=== PATIENT | female | born 1945 | race Caucasian/White ===

== ENCOUNTER 2020-06-19 04:40 | Inpatient (IN) | payer MEDICARE ==
[2020-06-19 05:13] LABS: Analyzer IN Cardio ER; Base Excess (BEa) -0.9 mEq/L (-2.0 to +3.0); CO2 Tension 40.3 mmHg (35.0-45.0); Calcium, Ionized (arterial) 1.21 mmol/L (1.12-1.30); Carboxyhemoglobin (COHb) 0.4 gm% (0.0-3.0); O2 Tension (PaO2), arterial 63.1 mmHg (> 70.0); pH, Arterial 7.39 (7.35-7.45)
[2020-06-19 05:15] LABS: Puncture Site LRA
[2020-06-19 05:17] LABS: ALV-art Gradient 456.925 mmHg (0-20)
[2020-06-19] MEDS ORDERED: Bisacodyl 10 MG SUPP PR PRN (05:29)
[2020-06-19] MEDS ORDERED: Nitroglycerin 0.4 MG TAB (25 Tab Bottle) SL PRN (05:29)
[2020-06-19] MEDS ORDERED: hydrALAZINE 20 MG/ML VIAL SLOW IVP PRN (05:36)
[2020-06-19 05:37] LABS: ALT (SGPT) 20 U/L (8-55); AST (SGOT) 24 U/L (5-34); Albumin 2.7 g/dL (3.4-4.8); Alkaline Phosphatase 128 U/L (40-110); Anion Gap 14 mmol/L (10-20); BUN (Urea Nitrogen) 15 mg/dL (9.8-20.1); Calc. Creatinine Clearance 0 mL/min (70-130); Calcium 9.3 mg/dL (7.8-10.44); Carbon Dioxide 27 mmol/L (23-31); Chloride 99 mmol/L (98-107); Glucose 117 mg/dL (83-110); Potassium 4.2 mmol/L (3.5-5.1); Protein, Total 6.7 g/dL (5.8-8.1); Sodium 136 mmol/L (136-145)
[2020-06-19] MEDS ORDERED: Piperacillin/Tazobactam 3.375 GM VIAL ONE (05:46)
[2020-06-19 06:00] LABS: Anisocytosis SLIGHT = 6-15 cells (100X) (0-5/hpf); Band 5 % (5-11); Hemoglobin 10.3 g/dL (12.0-16.0); Lymphocytes 10 % (21-51); MDiff Complete? YES; Mean Corpuscular HGB CONC 29.5 g/dL (32.0-36.0); Mean Corpuscular Hemoglobin 24.4 pg (27.0-31.0); Mean Corpuscular Volume 82.9 fL (78.0-98.0); Mean Platelet Volume 7.8 fL (7.4-10.4); Monocytes 6 % (0-10); Neutrophil 79 % (42-75); Platelet Count 311 thou/uL (130-400); RBC Distribution Width 17.5 % (11.5-14.5); Red Blood Cell (RBC) Count 4.22 mill/uL (4.20-5.40); White Blood Cell (WBC) Count 21.5 thou/uL (4.8-10.8)
[2020-06-19] MEDS ORDERED: Ivermectin 3 MG TAB PO SCH (06:00)
[2020-06-19 06:28] LABS: Lactic Acid 1.4 mmol/L (0.5-2.2)
[2020-06-19] MEDS ORDERED: Potassium Phosphate 30 MMOL in Sodium Chloride 0.9% 500 ML IVPB SCH (06:30)
[2020-06-19] MEDS ORDERED: VANCOMYCIN 2 GRAM/400 ML BAG 2 GM in Premix Bag 1 BAG IVPB SCH (06:45)
[2020-06-19] MEDS ORDERED: Enoxaparin Sodium 80 MG/0.8 ML SYRINGE SC SCH (09:00)
[2020-06-19] MEDS: Enoxaparin Sodium 120 MG/0.8 ML SYRINGE SC SCH ×2 (09:10→21:52)
[2020-06-19] MEDS: Famotidine/PF 20 mg/2ml Vial SLOW IVP SCH ×2 (09:10→21:52)
[2020-06-19] MEDS: Furosemide 40 MG/4 ML VIAL SLOW IVP SCH ×2 (09:10→13:52)
[2020-06-19 09:21] LABS: Troponin I Less than 0.010 ng/mL (< 0.028)
[2020-06-19 10:56] VITALS: BMI 47.7
[2020-06-19] MEDS: Albuterol 200 PUFF (6.7GM INHALER) INH SCH ×5 (11:03→21:38)
[2020-06-19] MEDS: Dexamethasone Sod Phosphate 6 MG in Sodium Chloride 0.9% 50 ML IVPB SCH ×2 (11:06→21:52)
[2020-06-19] MEDS: Zinc Sulfate 220 MG CAP PO SCH (11:27)
[2020-06-19] MEDS: guaiFENesin ER 600 MG TAB PO SCH ×2 (11:27→21:52)
[2020-06-19] MEDS: Ondansetron PF 4 MG/2 ML Vial IVP PRN (11:31)
[2020-06-19] MEDS: Morphine 4 MG/ML VIAL SLOW IVP PRN (13:52)
[2020-06-19] MEDS: Sotalol HCl 80 MG TAB PO SCH (21:51)
[2020-06-19] MEDS: Atorvastatin Calcium 40 MG TAB PO SCH (21:51)
[2020-06-19] MEDS: tiZANidine HCl 4 MG TAB PO PRN (21:52)
[2020-06-20] MEDS: Ondansetron PF 4 MG/2 ML Vial IVP PRN ×3 (02:35→17:25)
[2020-06-20] MEDS: Morphine 4 MG/ML VIAL SLOW IVP PRN (02:40)
[2020-06-20] MEDS: Albuterol 200 PUFF (6.7GM INHALER) INH SCH ×6 (03:09→22:59)
[2020-06-20 04:00] LABS: Hemoglobin 9.2 g/dL (12.0-16.0); MDiff Complete? YES; Mean Corpuscular Hemoglobin 24.2 pg (27.0-31.0); Mean Corpuscular Volume 80.7 fL (78.0-98.0); Mean Platelet Volume 8.3 fL (7.4-10.4); Platelet Count 272 thou/uL (130-400); RBC Distribution Width 17.1 % (11.5-14.5); White Blood Cell (WBC) Count 16.8 thou/uL (4.8-10.8)
[2020-06-20 04:01] LABS: Hypochromia SLIGHT = 6-15 cells (100X) (0-5/hpf); Lymphocytes 2 % (21-51); Monocytes 4 % (0-10); Neutrophil 94 % (42-75); Platelet Morphology Comment Appears Adequate
[2020-06-20 04:10] LABS: ALT (SGPT) 20 U/L (8-55); AST (SGOT) 22 U/L (5-34); Albumin 2.4 g/dL (3.4-4.8); Alkaline Phosphatase 123 U/L (40-110); Anion Gap 12 mmol/L (10-20); BUN (Urea Nitrogen) 18 mg/dL (9.8-20.1); Bilirubin, Total 0.8 mg/dL (0.2-1.2); Calc. Creatinine Clearance 121 mL/min (70-130); Calcium 9.2 mg/dL (7.8-10.44); Carbon Dioxide 30 mmol/L (23-31); Chloride 94 mmol/L (98-107); Globulin 3.6 g/dL (2.4-3.5); Glucose 158 mg/dL (83-110); Potassium 4.1 mmol/L (3.5-5.1); Sodium 132 mmol/L (136-145)
[2020-06-20] MEDS: Zinc Sulfate 220 MG CAP PO SCH (08:52)
[2020-06-20] MEDS: Famotidine/PF 20 mg/2ml Vial SLOW IVP SCH ×2 (08:52→21:35)
[2020-06-20] MEDS: Potassium Chloride 20 MEQ TAB PO SCH (08:52)
[2020-06-20] MEDS: Sotalol HCl 80 MG TAB PO SCH ×2 (08:52→21:35)
[2020-06-20] MEDS: Aspirin 81 mg Enteric Coated Tablet PO SCH (08:52)
[2020-06-20] MEDS: Furosemide 40 MG TAB PO SCH (08:52)
[2020-06-20] MEDS: guaiFENesin ER 600 MG TAB PO SCH ×2 (08:52→21:35)
[2020-06-20] MEDS: Enoxaparin Sodium 120 MG/0.8 ML SYRINGE SC SCH ×2 (08:54→21:34)
[2020-06-20] MEDS: Dexamethasone Sod Phosphate 6 MG in Sodium Chloride 0.9% 50 ML IVPB SCH ×2 (09:36→21:35)
[2020-06-20] MEDS: Colchicine 0.6 MG TAB PO SCH (21:35)
[2020-06-20] MEDS: tiZANidine HCl 4 MG TAB PO PRN (21:35)
[2020-06-20] MEDS: Melatonin 3 MG TAB PO SCH (21:35)
[2020-06-20] MEDS: Atorvastatin Calcium 40 MG TAB PO SCH (21:35)
[2020-06-21] MEDS: Morphine 4 MG/ML VIAL SLOW IVP PRN (00:47)
[2020-06-21] MEDS ORDERED: Mag-Al 1200 mg/1200 mg/30 ML UDCUP PO SCH (03:30)
[2020-06-21] MEDS: Albuterol 200 PUFF (6.7GM INHALER) INH SCH ×6 (04:00→23:45)
[2020-06-21] MEDS: Enoxaparin Sodium 120 MG/0.8 ML SYRINGE SC SCH ×2 (08:14→22:27)
[2020-06-21] MEDS: Potassium Chloride 20 MEQ TAB PO SCH (08:14)
[2020-06-21] MEDS: guaiFENesin ER 600 MG TAB PO SCH ×2 (08:14→22:27)
[2020-06-21] MEDS: Colchicine 0.6 MG TAB PO SCH ×2 (08:14→22:28)
[2020-06-21] MEDS: Furosemide 40 MG TAB PO SCH (08:14)
[2020-06-21] MEDS: Sotalol HCl 80 MG TAB PO SCH ×2 (08:15→22:27)
[2020-06-21] MEDS: Aspirin 81 mg Enteric Coated Tablet PO SCH (08:15)
[2020-06-21] MEDS: Zinc Sulfate 220 MG CAP PO SCH (08:15)
[2020-06-21] MEDS ORDERED: Pantoprazole 40 MG GRANULES PACKET PO SCH (09:00)
[2020-06-21] MEDS: Dexamethasone Sod Phosphate 6 MG in Sodium Chloride 0.9% 50 ML IVPB SCH ×2 (09:21→22:27)
[2020-06-21] MEDS: Mag-Al 1200 mg/1200 mg/30 ML UDCUP PO PRN (16:12)
[2020-06-21] MEDS: Ondansetron PF 4 MG/2 ML Vial IVP PRN (21:05)
[2020-06-21] MEDS: Atorvastatin Calcium 40 MG TAB PO SCH (22:28)
[2020-06-21] MEDS: Melatonin 3 MG TAB PO SCH (22:28)
[2020-06-22] MEDS: Albuterol 200 PUFF (6.7GM INHALER) INH SCH ×6 (03:32→22:45)
[2020-06-22] MEDS: Morphine 4 MG/ML VIAL SLOW IVP PRN ×2 (03:58→11:34)
[2020-06-22] MEDS: guaiFENesin ER 600 MG TAB PO SCH ×2 (08:16→21:50)
[2020-06-22] MEDS: Aspirin 81 mg Enteric Coated Tablet PO SCH (08:16)
[2020-06-22] MEDS: Colchicine 0.6 MG TAB PO SCH ×2 (08:16→21:50)
[2020-06-22] MEDS: Potassium Chloride 20 MEQ TAB PO SCH (08:16)
[2020-06-22] MEDS: Furosemide 40 MG TAB PO SCH (08:16)
[2020-06-22] MEDS: Enoxaparin Sodium 120 MG/0.8 ML SYRINGE SC SCH ×2 (08:16→21:50)
[2020-06-22] MEDS: Zinc Sulfate 220 MG CAP PO SCH (08:16)
[2020-06-22] MEDS: Sotalol HCl 80 MG TAB PO SCH ×2 (08:16→21:51)
[2020-06-22] MEDS: Dexamethasone Sod Phosphate 6 MG in Sodium Chloride 0.9% 50 ML IVPB SCH ×2 (10:25→21:51)
[2020-06-22] MEDS: Melatonin 3 MG TAB PO SCH (21:49)
[2020-06-22] MEDS: Cholecalciferol 1,000 UNITS (25 MCG) TAB PO SCH (21:50)
[2020-06-22] MEDS: Atorvastatin Calcium 40 MG TAB PO SCH (21:50)
[2020-06-23] MEDS: Morphine 4 MG/ML VIAL SLOW IVP PRN ×4 (00:10→22:05)
[2020-06-23] MEDS: Albuterol 200 PUFF (6.7GM INHALER) INH SCH ×6 (04:00→22:31)
[2020-06-23 04:14] LABS: #Lymphocytes 0.8 thou/uL (1.20-3.40); #Monocytes 0.6 thou/uL (0.11-0.59); #Neutrophils 10.8 thou/uL (1.40-6.50); %Basophils 0.1 % (0.0-1.0); %Eosinophils 0.1 % (0.0-10.0); %Lymphocytes 6.5 % (21.0-51.0); %Neutrophils 88.3 % (42.0-75.0); Hemoglobin 9.7 g/dL (12.0-16.0); Mean Corpuscular HGB CONC 30.5 g/dL (32.0-36.0); Mean Corpuscular Hemoglobin 24.7 pg (27.0-31.0); Mean Corpuscular Volume 80.8 fL (78.0-98.0); Mean Platelet Volume 8.5 fL (7.4-10.4); Platelet Count 250 thou/uL (130-400); RBC Distribution Width 16.9 % (11.5-14.5); Red Blood Cell (RBC) Count 3.94 mill/uL (4.20-5.40); White Blood Cell (WBC) Count 12.3 thou/uL (4.8-10.8)
[2020-06-23 04:39] LABS: Anion Gap 11 mmol/L (10-20); BUN (Urea Nitrogen) 21 mg/dL (9.8-20.1); CRP (Inflammatory) 3.44 mg/dL (= or < 0.5); Calc. Creatinine Clearance 131 mL/min (70-130); Carbon Dioxide 32 mmol/L (23-31); Chloride 96 mmol/L (98-107); Glucose 166 mg/dL (83-110); Potassium 4.4 mmol/L (3.5-5.1); Sodium 135 mmol/L (136-145)
[2020-06-23] MEDS: Furosemide 40 MG TAB PO SCH (06:39)
[2020-06-23] MEDS: Enoxaparin Sodium 120 MG/0.8 ML SYRINGE SC SCH ×2 (08:39→22:02)
[2020-06-23] MEDS: Cholecalciferol 1,000 UNITS (25 MCG) TAB PO SCH ×2 (08:40→22:04)
[2020-06-23] MEDS: Zinc Sulfate 220 MG CAP PO SCH (08:40)
[2020-06-23] MEDS: Sotalol HCl 80 MG TAB PO SCH ×2 (08:40→22:05)
[2020-06-23] MEDS: Potassium Chloride 20 MEQ TAB PO SCH (08:40)
[2020-06-23] MEDS: Aspirin 81 mg Enteric Coated Tablet PO SCH (08:40)
[2020-06-23] MEDS: guaiFENesin ER 600 MG TAB PO SCH ×2 (08:40→22:02)
[2020-06-23] MEDS: Colchicine 0.6 MG TAB PO SCH ×2 (08:40→22:04)
[2020-06-23] MEDS: Dexamethasone Sod Phosphate 6 MG in Sodium Chloride 0.9% 50 ML IVPB SCH ×2 (09:59→22:03)
[2020-06-23] MEDS: Mag-Al 1200 mg/1200 mg/30 ML UDCUP PO PRN (10:15)
[2020-06-23] MEDS: Atorvastatin Calcium 40 MG TAB PO SCH (22:04)
[2020-06-23] MEDS: Melatonin 3 MG TAB PO SCH (22:04)
[2020-06-24] MEDS: Albuterol 200 PUFF (6.7GM INHALER) INH SCH ×6 (02:12→22:15)
[2020-06-24] MEDS: Morphine 4 MG/ML VIAL SLOW IVP PRN ×4 (03:00→21:36)
[2020-06-24] MEDS: Sotalol HCl 80 MG TAB PO SCH ×2 (08:39→21:30)
[2020-06-24] MEDS: Cholecalciferol 1,000 UNITS (25 MCG) TAB PO SCH ×2 (08:39→21:30)
[2020-06-24] MEDS: Colchicine 0.6 MG TAB PO SCH ×2 (08:39→21:30)
[2020-06-24] MEDS: Aspirin 81 mg Enteric Coated Tablet PO SCH (08:39)
[2020-06-24] MEDS: Zinc Sulfate 220 MG CAP PO SCH (08:40)
[2020-06-24] MEDS: guaiFENesin ER 600 MG TAB PO SCH ×2 (08:40→21:30)
[2020-06-24] MEDS: Potassium Chloride 20 MEQ TAB PO SCH (08:40)
[2020-06-24] MEDS: Enoxaparin Sodium 120 MG/0.8 ML SYRINGE SC SCH (08:40)
[2020-06-24] MEDS: Furosemide 40 MG TAB PO SCH (08:40)
[2020-06-24] MEDS: Dexamethasone Sod Phosphate 6 MG in Sodium Chloride 0.9% 50 ML IVPB SCH ×2 (09:50→21:31)
[2020-06-24] MEDS: Ondansetron PF 4 MG/2 ML Vial IVP PRN (10:34)
[2020-06-24] MEDS: Rivaroxaban 15 MG TAB PO SCH (17:38)
[2020-06-24] MEDS: Melatonin 3 MG TAB PO SCH (21:30)
[2020-06-24] MEDS: Atorvastatin Calcium 40 MG TAB PO SCH (21:30)
[2020-06-25] MEDS: Albuterol 200 PUFF (6.7GM INHALER) INH SCH ×6 (02:44→21:47)
[2020-06-25] MEDS: Morphine 4 MG/ML VIAL SLOW IVP PRN ×4 (03:21→21:20)
[2020-06-25] MEDS: Potassium Chloride 20 MEQ TAB PO SCH (09:05)
[2020-06-25] MEDS: Furosemide 40 MG TAB PO SCH (09:05)
[2020-06-25] MEDS: guaiFENesin ER 600 MG TAB PO SCH ×2 (09:05→21:18)
[2020-06-25] MEDS: Cholecalciferol 1,000 UNITS (25 MCG) TAB PO SCH ×2 (09:06→21:19)
[2020-06-25] MEDS: Aspirin 81 mg Enteric Coated Tablet PO SCH (09:06)
[2020-06-25] MEDS: Sotalol HCl 80 MG TAB PO SCH ×2 (09:06→21:19)
[2020-06-25] MEDS: Zinc Sulfate 220 MG CAP PO SCH (09:06)
[2020-06-25] MEDS: Colchicine 0.6 MG TAB PO SCH ×2 (09:09→21:18)
[2020-06-25] MEDS: Rivaroxaban 15 MG TAB PO SCH ×2 (09:09→18:27)
[2020-06-25] MEDS: Dexamethasone Sod Phosphate 6 MG in Sodium Chloride 0.9% 50 ML IVPB SCH ×2 (10:04→21:19)
[2020-06-25] MEDS: Ondansetron PF 4 MG/2 ML Vial IVP PRN (10:08)
[2020-06-25] MEDS: tiZANidine HCl 4 MG TAB PO PRN (21:19)
[2020-06-25] MEDS: Atorvastatin Calcium 40 MG TAB PO SCH (21:19)
[2020-06-25] MEDS: Melatonin 3 MG TAB PO SCH (21:19)
[2020-06-26] MEDS: Morphine 4 MG/ML VIAL SLOW IVP PRN ×5 (02:09→23:19)
[2020-06-26] MEDS: Albuterol 200 PUFF (6.7GM INHALER) INH SCH ×6 (02:28→22:15)
[2020-06-26] MEDS: Furosemide 40 MG TAB PO SCH (09:19)
[2020-06-26] MEDS: Cholecalciferol 1,000 UNITS (25 MCG) TAB PO SCH ×2 (09:19→21:12)
[2020-06-26] MEDS: Sotalol HCl 80 MG TAB PO SCH ×2 (09:19→21:11)
[2020-06-26] MEDS: Aspirin 81 mg Enteric Coated Tablet PO SCH (09:19)
[2020-06-26] MEDS: Colchicine 0.6 MG TAB PO SCH ×2 (09:20→21:12)
[2020-06-26] MEDS: Zinc Sulfate 220 MG CAP PO SCH (09:20)
[2020-06-26] MEDS: Potassium Chloride 20 MEQ TAB PO SCH (09:20)
[2020-06-26] MEDS: guaiFENesin ER 600 MG TAB PO SCH ×2 (09:20→21:12)
[2020-06-26] MEDS: Dexamethasone Sod Phosphate 6 MG in Sodium Chloride 0.9% 50 ML IVPB SCH ×2 (09:21→21:11)
[2020-06-26] MEDS: Ondansetron PF 4 MG/2 ML Vial IVP PRN ×2 (09:24→21:11)
[2020-06-26] MEDS ORDERED: tiZANidine HCl 4 MG TAB PO PRN (09:45)
[2020-06-26] MEDS: Rivaroxaban 15 MG TAB PO SCH ×2 (09:46→16:44)
[2020-06-26] MEDS: Senokot 8.6 MG TAB PO PRN ×2 (09:53→21:12)
[2020-06-26] MEDS: Mag-Al 1200 mg/1200 mg/30 ML UDCUP PO PRN (12:31)
[2020-06-26] MEDS: Melatonin 3 MG TAB PO SCH (21:12)
[2020-06-26] MEDS: Atorvastatin Calcium 40 MG TAB PO SCH (21:12)
[2020-06-27] MEDS: Albuterol 200 PUFF (6.7GM INHALER) INH SCH ×6 (03:29→23:51)
[2020-06-27] MEDS: Morphine 4 MG/ML VIAL SLOW IVP PRN ×2 (05:10→10:32)
[2020-06-27] MEDS: Ondansetron PF 4 MG/2 ML Vial IVP PRN ×2 (05:17→22:43)
[2020-06-27] MEDS ORDERED: Fleet Enema 133 ML BOT PR SCH (09:45)
[2020-06-27] MEDS: Dexamethasone Sod Phosphate 6 MG in Sodium Chloride 0.9% 50 ML IVPB SCH ×2 (09:58→23:35)
[2020-06-27] MEDS: Furosemide 40 MG TAB PO SCH (09:59)
[2020-06-27] MEDS: Aspirin 81 mg Enteric Coated Tablet PO SCH (09:59)
[2020-06-27] MEDS: Cholecalciferol 1,000 UNITS (25 MCG) TAB PO SCH ×2 (09:59→22:47)
[2020-06-27] MEDS: Zinc Sulfate 220 MG CAP PO SCH (09:59)
[2020-06-27] MEDS: Colchicine 0.6 MG TAB PO SCH ×2 (09:59→22:50)
[2020-06-27] MEDS: guaiFENesin ER 600 MG TAB PO SCH ×2 (10:00→22:48)
[2020-06-27] MEDS: Potassium Chloride 20 MEQ TAB PO SCH (10:00)
[2020-06-27] MEDS: Rivaroxaban 15 MG TAB PO SCH ×2 (10:00→16:03)
[2020-06-27] MEDS: Senokot 8.6 MG TAB PO PRN ×2 (10:06→22:59)
[2020-06-27] MEDS: Sotalol HCl 80 MG TAB PO SCH ×2 (10:06→22:48)
[2020-06-27] MEDS: Atorvastatin Calcium 40 MG TAB PO SCH (22:48)
[2020-06-27] MEDS: Melatonin 3 MG TAB PO SCH (22:49)
[2020-06-27] MEDS: Zolpidem Tartrate 5 MG TAB PO PRN (22:50)
[2020-06-27] MEDS: Mag-Al 1200 mg/1200 mg/30 ML UDCUP PO PRN (22:57)
[2020-06-28] MEDS: Albuterol 200 PUFF (6.7GM INHALER) INH SCH ×6 (03:38→23:44)
[2020-06-28 07:21] LABS: #Lymphocytes 0.9 thou/uL (1.20-3.40); #Monocytes 0.8 thou/uL (0.11-0.59); #Neutrophils 13.9 thou/uL (1.40-6.50); %Basophils 0.1 % (0.0-1.0); %Eosinophils 0.3 % (0.0-10.0); %Neutrophils 88.7 % (42.0-75.0); Mean Corpuscular HGB CONC 31.3 g/dL (32.0-36.0); Mean Corpuscular Volume 79.7 fL (78.0-98.0); Mean Platelet Volume 8.9 fL (7.4-10.4); Platelet Count 238 thou/uL (130-400); RBC Distribution Width 17.1 % (11.5-14.5); Red Blood Cell (RBC) Count 3.99 mill/uL (4.20-5.40); White Blood Cell (WBC) Count 15.6 thou/uL (4.8-10.8)
[2020-06-28 07:49] LABS: Anion Gap 13 mmol/L (10-20); BUN (Urea Nitrogen) 20 mg/dL (9.8-20.1); Calc. Creatinine Clearance 142 mL/min (70-130); Calcium 8.1 mg/dL (7.8-10.44); Carbon Dioxide 29 mmol/L (23-31); Chloride 97 mmol/L (98-107); Glucose 143 mg/dL (83-110); Potassium 4.6 mmol/L (3.5-5.1); Sodium 134 mmol/L (136-145)
[2020-06-28] MEDS: Morphine 4 MG/ML VIAL SLOW IVP PRN ×2 (08:32→17:59)
[2020-06-28] MEDS: Ondansetron PF 4 MG/2 ML Vial IVP PRN ×2 (08:34→15:38)
[2020-06-28] MEDS: Dexamethasone Sod Phosphate 6 MG in Sodium Chloride 0.9% 50 ML IVPB SCH ×2 (09:11→21:06)
[2020-06-28] MEDS: Potassium Chloride 20 MEQ TAB PO SCH (09:12)
[2020-06-28] MEDS: Cholecalciferol 1,000 UNITS (25 MCG) TAB PO SCH ×2 (09:12→21:08)
[2020-06-28] MEDS: Colchicine 0.6 MG TAB PO SCH ×2 (09:12→21:06)
[2020-06-28] MEDS: Zinc Sulfate 220 MG CAP PO SCH (09:12)
[2020-06-28] MEDS: Rivaroxaban 15 MG TAB PO SCH ×2 (09:12→15:39)
[2020-06-28] MEDS: Sotalol HCl 80 MG TAB PO SCH ×2 (09:12→21:08)
[2020-06-28] MEDS: guaiFENesin ER 600 MG TAB PO SCH ×2 (09:13→21:08)
[2020-06-28] MEDS: Furosemide 40 MG TAB PO SCH (09:13)
[2020-06-28] MEDS: Aspirin 81 mg Enteric Coated Tablet PO SCH (09:14)
[2020-06-28] MEDS ORDERED: Albuterol Sulfate 2.5 mg/3 ml Neb NEB PRN (10:06)
[2020-06-28] MEDS: Mag-Al 1200 mg/1200 mg/30 ML UDCUP PO PRN (17:56)
[2020-06-28] MEDS: Mometasone 200 MCG/Formoterol 5 MCG 120 PUFF INHALER INH SCH (19:06)
[2020-06-28] MEDS ORDERED: Non-Formulary Item 1 EACH (Budesonide-Formoterol [Symbicort 160-4.5] 160 MG/4.5 MG Aer) INH SCH (21:00)
[2020-06-28] MEDS ORDERED: Non-Formulary Item 1 EACH (Pregabalin [Pregabalin] 100 MG Capsule) PO SCH (21:00)
[2020-06-28] MEDS: Melatonin 3 MG TAB PO SCH (21:07)
[2020-06-28] MEDS: Atorvastatin Calcium 40 MG TAB PO SCH (21:08)
[2020-06-28] MEDS: Pregabalin 50 MG CAP PO SCH (21:10)
[2020-06-28] MEDS: Zolpidem Tartrate 5 MG TAB PO PRN (23:03)
[2020-06-29] MEDS: Albuterol 200 PUFF (6.7GM INHALER) INH SCH ×6 (03:59→23:27)
[2020-06-29 05:07] LABS: #Eosinphils 0.1 thou/uL (0.0-0.7); #Monocytes 0.7 thou/uL (0.11-0.59); #Neutrophils 12.6 thou/uL (1.40-6.50); %Basophils 0.3 % (0.0-1.0); %Eosinophils 0.3 % (0.0-10.0); %Lymphocytes 6.9 % (21.0-51.0); %Monocytes 4.6 % (0.0-10.0); %Neutrophils 87.9 % (42.0-75.0); Hemoglobin 9.9 g/dL (12.0-16.0); Mean Corpuscular HGB CONC 31.7 g/dL (32.0-36.0); Mean Corpuscular Hemoglobin 25.6 pg (27.0-31.0); Mean Corpuscular Volume 80.7 fL (78.0-98.0); Mean Platelet Volume 8.6 fL (7.4-10.4); Platelet Count 261 thou/uL (130-400); RBC Distribution Width 17.1 % (11.5-14.5); Red Blood Cell (RBC) Count 3.87 mill/uL (4.20-5.40); White Blood Cell (WBC) Count 14.4 thou/uL (4.8-10.8)
[2020-06-29 06:03] LABS: Anion Gap 11 mmol/L (10-20); BUN (Urea Nitrogen) 18 mg/dL (9.8-20.1); Calc. Creatinine Clearance 149 mL/min (70-130); Calcium 8.9 mg/dL (7.8-10.44); Carbon Dioxide 29 mmol/L (23-31); Chloride 96 mmol/L (98-107); Glucose 121 mg/dL (83-110); Potassium 4.1 mmol/L (3.5-5.1); Sodium 132 mmol/L (136-145)
[2020-06-29] MEDS: Mometasone 200 MCG/Formoterol 5 MCG 120 PUFF INHALER INH SCH ×2 (07:52→19:14)
[2020-06-29] MEDS ORDERED: Fluticasone Propionate Nasal Spray 16 gm Bottle NASAL SCH (09:00)
[2020-06-29] MEDS: Pregabalin 50 MG CAP PO SCH ×2 (09:40→21:02)
[2020-06-29] MEDS: Ondansetron PF 4 MG/2 ML Vial IVP PRN (09:40)
[2020-06-29] MEDS: Furosemide 40 MG TAB PO SCH (09:40)
[2020-06-29] MEDS: Aspirin 81 mg Enteric Coated Tablet PO SCH (09:40)
[2020-06-29] MEDS: guaiFENesin ER 600 MG TAB PO SCH ×2 (09:41→21:02)
[2020-06-29] MEDS: Sotalol HCl 80 MG TAB PO SCH ×2 (09:41→21:00)
[2020-06-29] MEDS: Cholecalciferol 1,000 UNITS (25 MCG) TAB PO SCH ×2 (09:41→21:02)
[2020-06-29] MEDS: Rivaroxaban 15 MG TAB PO SCH ×2 (09:43→17:32)
[2020-06-29] MEDS: Colchicine 0.6 MG TAB PO SCH ×2 (09:43→21:02)
[2020-06-29] MEDS: Dexamethasone Sod Phosphate 6 MG in Sodium Chloride 0.9% 50 ML IVPB SCH ×2 (09:43→21:20)
[2020-06-29] MEDS: Zinc Sulfate 220 MG CAP PO SCH (09:43)
[2020-06-29] MEDS: Fluticasone Propionate Nasal Spray 16 gm Bottle NASAL SCH (09:43)
[2020-06-29] MEDS: Potassium Chloride 20 MEQ TAB PO SCH (09:43)
[2020-06-29] MEDS: Morphine 4 MG/ML VIAL SLOW IVP PRN (14:49)
[2020-06-29] MEDS: Melatonin 3 MG TAB PO SCH (21:02)
[2020-06-29] MEDS: Atorvastatin Calcium 40 MG TAB PO SCH (21:02)
[2020-06-29] MEDS: HYDROcodone/Acetaminophen 10/325 mg Tablet PO PRN (21:03)
[2020-06-29] MEDS: Zolpidem Tartrate 5 MG TAB PO PRN (21:03)
[2020-06-30] MEDS: Albuterol 200 PUFF (6.7GM INHALER) INH SCH ×6 (02:55→21:32)
[2020-06-30 05:46] LABS: #Lymphocytes 1.2 thou/uL (1.20-3.40); #Neutrophils 13.7 thou/uL (1.40-6.50); %Basophils 0.2 % (0.0-1.0); %Eosinophils 0.3 % (0.0-10.0); %Lymphocytes 7.4 % (21.0-51.0); %Monocytes 6.1 % (0.0-10.0); %Neutrophils 86.1 % (42.0-75.0); Hemoglobin 10.1 g/dL (12.0-16.0); Mean Corpuscular HGB CONC 31.1 g/dL (32.0-36.0); Mean Corpuscular Volume 80.5 fL (78.0-98.0); Mean Platelet Volume 8.4 fL (7.4-10.4); Platelet Count 280 thou/uL (130-400); RBC Distribution Width 17.3 % (11.5-14.5); Red Blood Cell (RBC) Count 4.03 mill/uL (4.20-5.40); White Blood Cell (WBC) Count 15.9 thou/uL (4.8-10.8)
[2020-06-30 06:04] LABS: Anion Gap 10 mmol/L (10-20); BUN (Urea Nitrogen) 17 mg/dL (9.8-20.1); Calc. Creatinine Clearance 142 mL/min (70-130); Calcium 8.9 mg/dL (7.8-10.44); Carbon Dioxide 31 mmol/L (23-31); Chloride 94 mmol/L (98-107); Glucose 161 mg/dL (83-110); Potassium 3.9 mmol/L (3.5-5.1); Sodium 131 mmol/L (136-145)
[2020-06-30] MEDS: Mometasone 200 MCG/Formoterol 5 MCG 120 PUFF INHALER INH SCH ×2 (07:01→19:05)
[2020-06-30] MEDS: Zinc Sulfate 220 MG CAP PO SCH (10:32)
[2020-06-30] MEDS: Cholecalciferol 1,000 UNITS (25 MCG) TAB PO SCH ×2 (10:32→22:35)
[2020-06-30] MEDS: Potassium Chloride 20 MEQ TAB PO SCH (10:32)
[2020-06-30] MEDS: Sotalol HCl 80 MG TAB PO SCH ×2 (10:33→22:35)
[2020-06-30] MEDS: Pregabalin 50 MG CAP PO SCH ×2 (10:33→22:36)
[2020-06-30] MEDS: Colchicine 0.6 MG TAB PO SCH ×2 (10:33→22:35)
[2020-06-30] MEDS: guaiFENesin ER 600 MG TAB PO SCH ×2 (10:33→22:35)
[2020-06-30] MEDS: Dexamethasone Sod Phosphate 6 MG in Sodium Chloride 0.9% 50 ML IVPB SCH ×2 (10:34→22:43)
[2020-06-30] MEDS: Aspirin 81 mg Enteric Coated Tablet PO SCH (10:34)
[2020-06-30] MEDS: Rivaroxaban 15 MG TAB PO SCH ×2 (10:34→17:10)
[2020-06-30] MEDS: Furosemide 40 MG TAB PO SCH (10:34)
[2020-06-30] MEDS: Fluticasone Propionate Nasal Spray 16 gm Bottle NASAL SCH (10:35)
[2020-06-30] MEDS: Ondansetron PF 4 MG/2 ML Vial IVP PRN ×2 (10:47→19:14)
[2020-06-30] MEDS: Zolpidem Tartrate 5 MG TAB PO PRN (22:34)
[2020-06-30] MEDS: Atorvastatin Calcium 40 MG TAB PO SCH (22:36)
[2020-06-30] MEDS: Melatonin 3 MG TAB PO SCH (22:36)
[2020-07-01] MEDS: Albuterol 200 PUFF (6.7GM INHALER) INH SCH ×6 (02:11→22:05)
[2020-07-01 05:14] LABS: Anion Gap 10 mmol/L (10-20); BUN (Urea Nitrogen) 17 mg/dL (9.8-20.1); Calc. Creatinine Clearance 142 mL/min (70-130); Carbon Dioxide 32 mmol/L (23-31); Chloride 95 mmol/L (98-107); Glucose 151 mg/dL (83-110); Potassium 3.9 mmol/L (3.5-5.1); Sodium 133 mmol/L (136-145)
[2020-07-01] MEDS: Mometasone 200 MCG/Formoterol 5 MCG 120 PUFF INHALER INH SCH ×2 (07:28→19:08)
[2020-07-01] MEDS: Rivaroxaban 15 MG TAB PO SCH ×2 (09:04→17:21)
[2020-07-01] MEDS: Sotalol HCl 80 MG TAB PO SCH ×2 (09:05→21:03)
[2020-07-01] MEDS: Potassium Chloride 20 MEQ TAB PO SCH (09:05)
[2020-07-01] MEDS: Zinc Sulfate 220 MG CAP PO SCH (09:05)
[2020-07-01] MEDS: Pregabalin 50 MG CAP PO SCH ×2 (09:05→21:03)
[2020-07-01] MEDS: Aspirin 81 mg Enteric Coated Tablet PO SCH (09:05)
[2020-07-01] MEDS: Colchicine 0.6 MG TAB PO SCH ×2 (09:07→21:03)
[2020-07-01] MEDS: Fluticasone Propionate Nasal Spray 16 gm Bottle NASAL SCH (09:07)
[2020-07-01] MEDS: Furosemide 40 MG TAB PO SCH (09:07)
[2020-07-01] MEDS: Cholecalciferol 1,000 UNITS (25 MCG) TAB PO SCH ×2 (09:07→21:04)
[2020-07-01] MEDS: guaiFENesin ER 600 MG TAB PO SCH ×2 (09:07→21:04)
[2020-07-01] MEDS: Dexamethasone Sod Phosphate 6 MG in Sodium Chloride 0.9% 50 ML IVPB SCH ×2 (09:08→21:02)
[2020-07-01] MEDS: HYDROcodone/Acetaminophen 10/325 mg Tablet PO PRN ×2 (09:11→22:13)
[2020-07-01 09:15] VITALS: BP 141/66
[2020-07-01] MEDS: Mag-Al 1200 mg/1200 mg/30 ML UDCUP PO PRN (21:02)
[2020-07-01] MEDS: Atorvastatin Calcium 40 MG TAB PO SCH (21:04)
[2020-07-01] MEDS: Zolpidem Tartrate 5 MG TAB PO PRN (22:13)
[2020-07-01] MEDS: Melatonin 3 MG TAB PO SCH (22:13)
[2020-07-02] MEDS: Albuterol 200 PUFF (6.7GM INHALER) INH SCH ×4 (02:37→14:49)
[2020-07-02 04:06] LABS: #Eosinphils 0.1 thou/uL (0.0-0.7); #Lymphocytes 1.1 thou/uL (1.20-3.40); #Monocytes 0.8 thou/uL (0.11-0.59); #Neutrophils 14.3 thou/uL (1.40-6.50); %Eosinophils 0.4 % (0.0-10.0); %Lymphocytes 6.5 % (21.0-51.0); %Neutrophils 88.1 % (42.0-75.0); Hemoglobin 10.1 g/dL (12.0-16.0); Mean Corpuscular HGB CONC 31.6 g/dL (32.0-36.0); Mean Corpuscular Hemoglobin 25.4 pg (27.0-31.0); Mean Corpuscular Volume 80.5 fL (78.0-98.0); Mean Platelet Volume 8.1 fL (7.4-10.4); Platelet Count 299 thou/uL (130-400); RBC Distribution Width 17.5 % (11.5-14.5); Red Blood Cell (RBC) Count 3.98 mill/uL (4.20-5.40); White Blood Cell (WBC) Count 16.3 thou/uL (4.8-10.8)
[2020-07-02 04:22] LABS: Anion Gap 8 mmol/L (10-20); BUN (Urea Nitrogen) 18 mg/dL (9.8-20.1); Calc. Creatinine Clearance 151 mL/min (70-130); Calcium 9.1 mg/dL (7.8-10.44); Carbon Dioxide 33 mmol/L (23-31); Chloride 95 mmol/L (98-107); Glucose 145 mg/dL (83-110); Potassium 4.2 mmol/L (3.5-5.1); Sodium 132 mmol/L (136-145)
[2020-07-02] MEDS: Mometasone 200 MCG/Formoterol 5 MCG 120 PUFF INHALER INH SCH (08:11)
[2020-07-02] MEDS ORDERED: Cefepime 1 GM in Sodium Chloride 0.9% 100 ML IVPB SCH (09:00)
[2020-07-02] MEDS: Rivaroxaban 15 MG TAB PO SCH (10:26)
[2020-07-02] MEDS: Potassium Chloride 20 MEQ TAB PO SCH (10:26)
[2020-07-02] MEDS: Furosemide 40 MG TAB PO SCH (10:26)
[2020-07-02] MEDS: Aspirin 81 mg Enteric Coated Tablet PO SCH (10:27)
[2020-07-02] MEDS: Colchicine 0.6 MG TAB PO SCH (10:27)
[2020-07-02] MEDS: Cholecalciferol 1,000 UNITS (25 MCG) TAB PO SCH (10:27)
[2020-07-02] MEDS: guaiFENesin ER 600 MG TAB PO SCH (10:27)
[2020-07-02] MEDS: Pregabalin 50 MG CAP PO SCH (10:27)
[2020-07-02] MEDS: Fluticasone Propionate Nasal Spray 16 gm Bottle NASAL SCH (10:27)
[2020-07-02] MEDS: Sotalol HCl 80 MG TAB PO SCH (10:28)
[2020-07-02] MEDS: Zinc Sulfate 220 MG CAP PO SCH (10:28)
[2020-07-02] MEDS: Dexamethasone Sod Phosphate 6 MG in Sodium Chloride 0.9% 50 ML IVPB SCH (10:53)
[2020-07-02 12:45] VITALS: TEMP 98.3
[2020-07-02] MEDS ORDERED: Morphine 2 MG/ML VIAL SLOW IVP PRN (13:32)
[2020-07-02] MEDS ORDERED: Morphine 4 MG/ML VIAL SLOW IVP PRN (13:32)
[2020-07-02] MEDS ORDERED: Lorazepam 2 MG/ML VIAL SLOW IVP PRN (13:34)
== END 2020-07-02 15:57 | disposition hospice, inpatient (51) | DRG 177 ==
LOC: ERS 04:40 → SUATTDRO 04:40 → IMCU/EMU 05:34
PROVIDERS: ADMIT Internal Medicine; ATTEND Internal Medicine
PROC: 5A09357 Assistance with Respiratory Ventilation, Less than 24 Consecutive Hours, Continuous Positive Airway Pressure (ICD-10-PCS; principal; 2020-06-19)
PROC: 5A0955A Assistance with Respiratory Ventilation, Greater than 96 Consecutive Hours, High Flow/Velocity Cannula (ICD-10-PCS; 2020-06-19)
PROC: 8E0ZXY6 Isolation (ICD-10-PCS; 2020-06-19)
DX: U07.1 COVID-19 (principal); J96.01 Acute respiratory failure with hypoxia; I26.99 Other pulmonary embolism without acute cor pulmonale; J12.82 Pneumonia due to coronavirus disease 2019; I50.22 Chronic systolic (congestive) heart failure; E87.1 Hypo-osmolality and hyponatremia; Z68.42 Body mass index [BMI] 45.0-49.9, adult; Z51.5 Encounter for palliative care; Z66 Do not resuscitate; I48.91 Unspecified atrial fibrillation; E78.5 Hyperlipidemia, unspecified; F32.9 Major depressive disorder, single episode, unspecified; I11.0 Hypertensive heart disease with heart failure; K21.9 Gastro-esophageal reflux disease without esophagitis; E78.00 Pure hypercholesterolemia, unspecified; J30.2 Other seasonal allergic rhinitis; K59.00 Constipation, unspecified; J43.9 Emphysema, unspecified; I08.3 Combined rheumatic disorders of mitral, aortic and tricuspid valves; E66.9 Obesity, unspecified; Z86.73 Personal history of transient ischemic attack (TIA), and cerebral infarction without residual deficits; Z90.49 Acquired absence of other specified parts of digestive tract; Z86.711 Personal history of pulmonary embolism; Z87.891 Personal history of nicotine dependence; Z79.51 Long term (current) use of inhaled steroids; Z86.718 Personal history of other venous thrombosis and embolism; Z79.01 Long term (current) use of anticoagulants; Z79.82 Long term (current) use of aspirin; Z79.899 Other long term (current) drug therapy
CPT/HCPCS: 36415; 36600; 71045; 80048; 80053; 82728; 82805; 83605; 84484; 85007; 85025; 85027; 86140; 87040; 93306; 94660; 94760; 96365; J0692; J1650; J1940; J1956; J2270; J2405; J2543; J3370; J3490; J7030; S0028

== ENCOUNTER 2020-07-02 16:12 | Inpatient (IN) | payer OTHER ==
[2020-07-02] MEDS ORDERED: Acetaminophen 325 MG TAB PO PRN (16:30)
[2020-07-02] MEDS ORDERED: Acetaminophen 650 MG Suppository PR PRN (16:30)
[2020-07-02] MEDS ORDERED: diphenhydrAMINE 50 MG/ML VIAL IVP PRN (16:32)
[2020-07-02] MEDS ORDERED: diphenhydrAMINE 25 MG CAP PO PRN (16:33)
[2020-07-02] MEDS ORDERED: Lorazepam 2 MG/ML VIAL SLOW IVP PRN ×2 (16:34→16:39)
[2020-07-02] MEDS ORDERED: Haloperidol Lactate 5 MG/ML VIAL SLOW IVP PRN (16:35)
[2020-07-02] MEDS ORDERED: Ondansetron PF 4 MG/2 ML Vial IVP PRN (16:36)
[2020-07-02] MEDS ORDERED: BIOTENE MOUTH SPRAY 44.3 ML MM PRN (16:41)
[2020-07-02] MEDS ORDERED: Glycopyrrolate 0.4 MG/ 2 ML VIAL SLOW IVP PRN (16:42)
[2020-07-02] MEDS ORDERED: Atropine Sulfate 1% Ophth Soln 5 ml Bottle PO PRN (16:44)
[2020-07-02] MEDS ORDERED: Artificial Tear Sol 15 ML BOT EA EYE PRN (16:46)
[2020-07-02] MEDS ORDERED: Scopolamine 1.5 mg/72 hour Patch TOP SCH (18:00)
[2020-07-02] MEDS: Morphine 2 MG/ML VIAL SLOW IVP PRN ×2 (18:02→23:32)
[2020-07-02] MEDS: Morphine 4 MG/ML VIAL SLOW IVP PRN (20:17)
[2020-07-02 23:25] VITALS: TEMP 98.5
[2020-07-03] MEDS: Morphine 2 MG/ML VIAL SLOW IVP PRN ×4 (03:27→07:20)
[2020-07-03] MEDS: Morphine 4 MG/ML VIAL SLOW IVP PRN ×2 (06:22→07:00)
== END 2020-07-03 10:29 | DRG 951 ==
LOC: IMCU/EMU 16:12
PROVIDERS: ADMIT Internal Medicine Nephrology; ATTEND Internal Medicine Nephrology
DX: Z51.5 Encounter for palliative care (principal); U07.1 COVID-19; J12.82 Pneumonia due to coronavirus disease 2019; Z66 Do not resuscitate; I26.99 Other pulmonary embolism without acute cor pulmonale; J96.01 Acute respiratory failure with hypoxia; I50.22 Chronic systolic (congestive) heart failure; E78.5 Hyperlipidemia, unspecified; F32.9 Major depressive disorder, single episode, unspecified; I11.0 Hypertensive heart disease with heart failure; J44.9 Chronic obstructive pulmonary disease, unspecified; Z86.73 Personal history of transient ischemic attack (TIA), and cerebral infarction without residual deficits; Z79.01 Long term (current) use of anticoagulants; Z86.718 Personal history of other venous thrombosis and embolism; Z90.49 Acquired absence of other specified parts of digestive tract; Z86.79 Personal history of other diseases of the circulatory system
CPT/HCPCS: J2060; J2270